=== PATIENT | female | born 1990 | race Caucasian/White ===

== ENCOUNTER → 2020-05-28 | Outpatient (CLI) | payer BC ==
--- NOTE | 2020-05-28 12:56 | Diagnostic Imaging Report ---
PROCEDURE: US OB SINGLE FETUS <14 WKS. TECHNIQUE: Multiple real-time grayscale images were obtained over the gravid uterus in various projections. INDICATION: OB ultrasound for dates. FINDINGS: There is a single live intrauterine fetus. [place]-rump length of 2.8 cm consistent with 9 week 5 day gestation. There is heart rate of 180. Amniotic sac appears normal. There is no subchorionic fluid demonstrated. The maternal adnexa appear normal. IMPRESSION: Single live intrauterine fetus consistent with 9 week 5 day gestation. Sonographic EDC of 12/26/2020 which correlates with LMP. Dictated by: Dictated on workstation # [id number]
== END ==
LOC: RAD 10:00
PROVIDERS: ATTEND Obstetrics & Gynecology
DX: O36.80X0 Pregnancy with inconclusive fetal viability, not applicable or unspecified (principal); Z3A.09 9 weeks gestation of pregnancy
CPT/HCPCS: 76801

== ENCOUNTER → 2020-08-13 | Outpatient (CLI) | payer BC ==
--- NOTE | 2020-08-13 14:31 | Diagnostic Imaging Report ---
INDICATION: Undergoing anatomical assessment during normal . TECHNIQUE: Multiple real-time grayscale images were obtained over the gravid uterus. COMPARISON: 05/28/2020. FINDINGS: A single viable intrauterine is currently in a breech presentation. Normal amount of amniotic fluid with gestational sac configuration unremarkable. Posterior placenta without previa. Cervical length at 4 cm. Visualized anatomical structures including the kidneys, bladder, stomach, intracranial structures, four-chamber heart, three-vessel cord and cord insertion site appearing unremarkable. The particularly lower spine was not able to be visualized and well assessed given the positioning. Biometrical measurements are as follows: Biparietal 4.69 cm, age 20 weeks 2 days. Head circumference 18.4 cm, age 20 weeks 6 days. Abdominal circumference 15.6 cm, age 20 weeks 6 days. Femur length 3.3 cm, age 20 weeks 2 days. Sonographic estimate age: 20 weeks 4 days. Sonographic estimated date of delivery: 12/27/20. Estimated Weight: 358 gm (+/- 52 gm). LMP percentile: 34%. heart rate: 143 beats per minute. number: 1 of 1. IMPRESSION: 1. Single viable intrauterine in a breech presentation. Sonographic estimated age at 20 weeks 4 days for estimated date of delivery of December 27, 2020. This corresponds to previous ultrasound dating. 2. No abnormality is demonstrated at this time. However, particularly the lower spine cannot be well visualized and assessed at this time given positioning. Consideration for short-term follow-up repeat imaging would be recommended for follow-up assessment. Dictated by: Dictated on workstation # [id number]
== END ==
LOC: RAD 09:40
PROVIDERS: ATTEND Obstetrics & Gynecology
DX: Z34.92 Encounter for supervision of normal pregnancy, unspecified, second trimester (principal); Z3A.20 20 weeks gestation of pregnancy
CPT/HCPCS: 76805

== ENCOUNTER → 2020-12-10 | Outpatient (CLI) | payer BC ==
[2020-12-10 16:58] LABS: URINE CREATININE FOR RATIO 28 MG/DL (30-125)
[2020-12-10 16:59] LABS: URINE PROTEIN FOR RATIO ONLY < 6 MG/DL (6-12)
== END ==
LOC: LABNPT 16:35
PROVIDERS: ATTEND Obstetrics & Gynecology
DX: O13.9 Gestational [pregnancy-induced] hypertension without significant proteinuria, unspecified trimester (principal); Z3A.00 Weeks of gestation of pregnancy not specified
CPT/HCPCS: 82570; 84156

== ENCOUNTER 2020-12-19 19:04 | Inpatient (IN) | payer BC ==
[2020-12-19] MEDS ORDERED: D5 LR IV SOLUTION 1,000 ML IV ONE (19:06)
[2020-12-19] MEDS ORDERED: NS IV 500 ML 500 ML ONE (19:06)
[2020-12-19 20:00] VITALS: BP 134/75
[2020-12-19] MEDS ORDERED: MISOPROSTOL 100 MCG (CYTOTEC) TAB ONE (20:01)
[2020-12-19] MEDS: D5 LR IV SOLUTION 1,000 ML IV SCH (20:11)
[2020-12-19 20:12] LABS: BASOPHILS % (AUTO) 0 % (0-10); EOSINOPHILS # (AUTO) 0.1 10^3/uL (0.0-0.3); EOSINOPHILS % (AUTO) 1 % (0-10); HEMATOCRIT 37 % (35-52); HEMOGLOBIN 12.7 g/dL (11.5-16.0); LYMPHOCYTES # (AUTO) 2.1 10^3/uL (1.0-4.0); LYMPHOCYTES % (AUTO) 21 % (12-44); MEAN CORPUSCULAR HEMOGLOBIN 31 pg (25-34); MEAN CORPUSCULAR HGB CONC 34 g/dL (32-36); MEAN CORPUSCULAR VOLUME 90 fL (80-99); MEAN PLATELET VOLUME 10.8 fL (9.0-12.2); MONOCYTES # (AUTO) 0.7 10^3/uL (0.0-1.0); MONOCYTES % (AUTO) 7 % (0-12); NEUTROPHILS # (AUTO) 7.3 10^3/uL (1.8-7.8); NEUTROPHILS % (AUTO) 71 % (42-75); PLATELET COUNT 265 10^3/uL (130-400); WHITE BLOOD COUNT 10.3 10^3/uL (4.3-11.0)
[2020-12-19 20:14] LABS: BILIRUBIN,URINE NEGATIVE (NEGATIVE); CLARITY,URINE CLEAR; COLOR,URINE YELLOW; GLUCOSE, URINE (UA) NEGATIVE (NEGATIVE); KETONES,URINE NEGATIVE (NEGATIVE); LEUKOCYTE ESTERASE ,URINE NEGATIVE (NEGATIVE); NITRITE,URINE NEGATIVE (NEGATIVE); PH,URINE 6.5 (5-9); PROTEIN,URINE NEGATIVE (NEGATIVE)
[2020-12-19] MEDS ORDERED: NS IV 500 ML 500 ML IV ONE (20:15)
[2020-12-19] MEDS ORDERED: MISOPROSTOL 100 MCG (CYTOTEC) TAB PO ONE (20:15)
[2020-12-19 20:21] LABS: BACTERIA,URINE TRACE /HPF; WBC,URINE RARE /HPF
[2020-12-19 22:00] VITALS: BP 132/78
[2020-12-19] MEDS ORDERED: CATHETER FLUSH 10 ML SYR IV SCH (22:00)
[2020-12-19 23:00] VITALS: BP 135/73
[2020-12-20] VITALS (80 sets, daily range): BP systolic 111–191; BP diastolic 63–102
[2020-12-20] MEDS: MISOPROSTOL 100 MCG (CYTOTEC) TAB PO SCH ×2 (00:10→04:16)
[2020-12-20] MEDS ORDERED: fentaNYL 2 mcg/ml BUPIVA 0.125 100 ML ONE (01:26)
[2020-12-20] MEDS: D5 LR IV SOLUTION 1,000 ML IV SCH ×3 (03:31→19:23)
[2020-12-20] MEDS ORDERED: OXYTOCIN PRE-MIX DRIP 500 ML IV ONE ×2 (06:02→21:59)
[2020-12-20] MEDS ORDERED: OXYTOCIN PRE-MIX DRIP 500 ML IV SCH (06:15)
[2020-12-20] MEDS ORDERED: BUPIVACAINE 0.25% 30 ML (SENSORCAINE) VIAL ONE (10:07)
[2020-12-20] MEDS ORDERED: fentaNYL INJECTION 100 MCG/2 ML AMP ONE ×2 (10:07→20:39)
[2020-12-20] MEDS ORDERED: diphenhydrAMINE 50 MG/ML INJ (BENADRYL) IV PRN ×2 (10:15→22:30)
[2020-12-20] MEDS ORDERED: NALOXONE 0.4 MG/ML 1 ML (NARCAN) VIAL IV PRN ×3 (10:15→22:30)
[2020-12-20] MEDS ORDERED: ONDANSETRON 4 MG/2 ML (SDV) Z0FRAN IV PRN ×2 (10:15→22:30)
[2020-12-20] MEDS ORDERED: METOCLOPRAMIDE INJ 10 MG/2 ML (REGLAN) IV PRN (10:15)
[2020-12-20] MEDS: EPIDURAL (fentaNYL 2 MCG/ML BUPIVA 0.125%)100 ML BAG EPI PRN ×2 (10:38→18:35)
[2020-12-20] MEDS: LACTATED RINGERS 1,000 ML IV SCH ×2 (10:38→20:39)
[2020-12-20] MEDS ORDERED: CITRIC ACID/SOB CIT (BICITRA) 30 ML UDC ONE (20:28)
[2020-12-20] MEDS ORDERED: ceFAZolin 2 GM IV Premixed 50 ML ONE (20:28)
[2020-12-20] MEDS ORDERED: FAMOTIDINE 20MG/2ML IV (PEPCID) ONE (20:29)
[2020-12-20] MEDS ORDERED: BUPIVACAINE 0.5% 30 ML (SENSORCAINE) VIAL ONE ×2 (20:39→22:22)
[2020-12-20] MEDS ORDERED: LIDOCAINE PF 2% 5 ML (XYLOCAINE) VIAL ONE (20:39)
--- NOTE | 2020-12-20 20:40 | History & Physical-OB ---
OB - Chief Complaint & HPI Date/Time Date of Admission: Date of Admission: Dec 19, 2020 at 19:04 Date seen by a Provider: Dec 20, 2020 Time Seen by a Provider: 07:45 Chief Complaint/History OB-Reason for Admission/Chief: Induction of Labor Hx : 1 Hx Para: 0 Expected Date of Delivery: Dec 26, 2020 Gestational Age in Weeks: 39 Gestational Age in Days: 1 Indication for induction: maternal discomfort Admission Nurse Assessment Rev: Yes Allergies and Home Medications Allergies Coded Allergies: No Known Allergies (Verified Allergy, Unknown, 12/19/20) Patient Home Medication List Home Medication List Reviewed: Yes OB - History Hx of Present Care: Yes Ultrasounds: Normal mid trimester US Obstetrical Complications: None Medical Complications: None Patient Past Medical History n/a Immunizations Hepatitis A: Yes Hepatitis B: Yes Date of Influenza Vaccine: Aug 19, 2020 OB - Admission Exam Physical Exam Vitals: Vital Signs 12/20/20 12/20/20 18:35 19:08 Temp 37.1 Pulse 95 Resp 18 B/P (MAP) 148/89 (108) Pulse Ox 99 O2 Delivery Room Air HEENT: NCAT Heart: Rhythm Normal Lungs: Clear Abdomen: Gravid Extremities: Normal Reflexes: Normal Cervical Dilatation: 2cm Effacement: 75% Station: -1 Membranes: Intact Heart Rate: 130's Accelerations: Accelerations Present Decelerations: No Decelerations Short Term Variability: Present Fdc Variability: Average (6-25) Contractions on Admission: >10 Minutes Apart Intensity: Mild Powers Scoring Tool (Modified) Dilation (cm): 1-2cm (1) Descent/Station: -1,0 (2) Cervix Consistency: Soft (2) Cervix Position: Anterior (2) Subtract 1 point for: Nulliparity (-1) Powers Score: 8 Labs Laboratory Tests Test 12/19/20 21:50 Range/Units Coronavirus (COVID-19)(PCR) Negative Negative OB - Assessment/Plan/Diagnosis Assessment Assessment: induction of labor Admission Dx 30 yo @ 39 weeks Elective induction of labor GBS neg Admission Status: Inpatient Order (span 2 midnights) Reason for Inpatient Admission: Induction of labor at term Plan Plan: Induction Induction Method: per Misoprostol Protocol Other Plan Misoprostol overnight, AROM and Pitocin in AM. SWAPNA ZUNIGA DO Dec 20, 2020 20:40
--- NOTE | 2020-12-20 20:43 | Progress Note ---
Standard Progress Note Progress Notes/Assess & Plan Date Seen by a Provider: Dec 20, 2020 Time Seen by a Provider: 20:30 Progress/Assessment & Plan Patient admitted last night for IOL at 39 weeks, cytotec given overnight, followed by AROM and Pitocin augmentation this AM. She received an epidural for pain control and progressed to complete and 0 station at which point she was given time to labor down over one hour. There was no change in station, and encouraged to push with no descent. There was a large caput developing, suspecting CPD. Discussed with patient proceeding with PLTCS due to suspected CPD and failure to descend. All questions were answered and she was agree able, consent to be obtained, and OR crew notified. SWAPNA ZUNIGA DO Dec 20, 2020 20:43
[2020-12-20] MEDS ORDERED: MEASLES,MUMPS,RUBELLA 1 EA INJ SC SCH (20:45)
[2020-12-20] MEDS ORDERED: TETANUS,DIPTH,PERTUSS P/F (BOOSTRIX) 0.5 ML VIAL IM SCH (20:45)
[2020-12-20] MEDS ORDERED: ONDANSETRON 4 MG/2 ML (SDV) Z0FRAN IVP PRN ×2 (20:45→22:30)
--- NOTE | 2020-12-20 20:48 | Discharge Inst-Women's Service ---
Discharge Inst-Women's Serv Depart Medication/Instructions New, Converted or Re-Newed RX: RX on Chart Final Diagnosis POD 2 PLTCS Problems Reviewed?: Yes Consults/Follow Up Additional Follow Up: Yes Orders/Referrals Dr. March in 7-10 days and in 6 weeks Activity Activity: Activity as Tolerated Driving Instructions: No Driving for 1 Week NO SMOKING: NO SMOKING Nothing Inside Vagina: No Douching, No [place], No Tampons Diet Discharge Diet: No Restrictions Symptoms to Report to : Bleeding Excessive, Pain Increased, Fever Over 101 Degrees F, Vaginal Bleeding Increase, Questions/Concerns For Any Problems or Questions: Contact Your Physician Skin/Wound Care Infection Signs and Symptoms: Increased Redness, Foul Odor of Wound, Increased Drainage, Skin Itchy or Has a Rash, Increased Swelling, Temperature Above 101 F Operative Area Clean and Dry: Keep Incision Clean/Dry Stitches/[place]/Dermabond: Dermabond, Care of Stitches Bathing Instructions: SWAPNA Stephens DO Dec 20, 2020 20:48
[2020-12-20] MEDS ORDERED: DCS100C PO (20:49)
[2020-12-20] MEDS ORDERED: ACHD5005 PO (20:49)
[2020-12-20] MEDS ORDERED: IBUP-844 PO (20:49)
[2020-12-20] MEDS: DOCUSATE SODIUM 100 MG (COLACE) CAP PO SCH (21:00)
[2020-12-20] MEDS ORDERED: KETOROLAC 30 MG/ML VIAL ONE (21:25)
[2020-12-20] MEDS ORDERED: MEPERIDINE (DEMEROL) INJ 50 MG/ML ONE (21:26)
[2020-12-20] MEDS ORDERED: ONDANSETRON 4 MG/2 ML (SDV) Z0FRAN ONE (21:59)
[2020-12-20] MEDS ORDERED: CATHETER FLUSH 10 ML SYR IV SCH (22:00)
[2020-12-20] MEDS ORDERED: LACTATED RINGERS 1,000 ML IV SCH (22:30)
[2020-12-20] MEDS ORDERED: fentaNYL INJECTION 100 MCG/2 ML AMP IVP ONE (22:30)
[2020-12-20] MEDS ORDERED: MEPERIDINE (DEMEROL) INJ 50 MG/ML IVP ONE (22:30)
[2020-12-20] MEDS: OXYTOCIN PRE-MIX DRIP 500 ML IV SCH (22:30)
[2020-12-20] MEDS ORDERED: morphine INJ 10 MG/ML 1ML (SYR OR VIAL) IVP ONE (22:30)
[2020-12-20] MEDS: KETOROLAC 30 MG/ML VIAL IV SCH (22:31)
--- NOTE | 2020-12-21 00:27 | OPERATIVE REPORT ---
DATE OF SERVICE: PREOPERATIVE DIAGNOSES: 1. A 30-year-old G1, P0, 39 weeks and 1 day gestation. 2. Cephalopelvic disproportion. 3. Failure to descend. POSTOPERATIVE DIAGNOSES: 1. A 30-year-old G1, P0, 39 weeks and 1 day gestation. 2. Cephalopelvic disproportion. 3. Failure to descend. PROCEDURE: Primary low transverse section. SURGEON: Hugo Zuniga DO ANESTHESIA: Epidural, which was bolused. ESTIMATED BLOOD LOSS: 700 mL. URINE OUTPUT: 60 mL clear at the end of the procedure. FLUIDS: 1000 mL lactated Ringer's solution. FINDINGS: A live male weighing 8 pounds even Apgars of 8 and 9. Grossly normal appearing uterus, bilateral fallopian tubes and ovaries. SPECIMEN SENT: None. INDICATIONS FOR PROCEDURE: This 30-year-old female that the patient has sent from my office yesterday for induction of labor due to labile blood pressures, also she was 39 weeks, we discussed the induction method including cervical ripening overnight. She received misoprostol overnight. Artificial rupture of membranes was performed this morning and Pitocin augmentation was used due to dysfunctional uterine contraction pattern after that. She did receive an epidural for analgesia and was well controlled with analgesia and progressed to complete and 0 station; however, after allowing the labor down and pushing for well over an hour, there was no progress in the presenting part past 0 station. Due to the suspicion for cephalopelvic disproportion, there was blood in the urine as well as swelling caput. I discussed with the patient proceeding with primary . Risks of the procedure were discussed with the patient, after all of her questions were answered, consent was obtained, the patient was taken to the operating room. OPERATIVE REPORT IN DETAIL: Once in the operating room, epidural analgesia was bolused and found to be adequate, placed in supine position with leftward tilt, prepped and draped in normal sterile fashion. A timeout was performed, and anesthesia was tested. I then make a Pfannenstiel skin incision with a knife and carried down to the underlying fascia using Bovie cautery. The fascial incision extended laterally using Bovie cautery. Superior aspect of fascial incision was then grasped with Kennedy clamps, tented up and dissected off the underlying rectus muscles. The inferior aspect of the fascial incision was then grasped with Kennedy clamps, tented up and dissected off the underlying rectus muscles. Rectus muscle was then dissected down the midline using Shelton scissors, which exposed the peritoneum, which I entered bluntly and extended using blunt traction. Anatoliy ring retractor was placed in the peritoneal incision, which offers excellent lateral sidewall retraction. I then identified the lower uterine segment, which was found to be thinned out and make a low transverse incision to the vesicouterine peritoneum and bluntly dissected this off the lower uterine segment, creating a bladder flap. I then proceeded with myotomy until membranes were visualized, at which point I extended the uterine incision laterally and superiorly using bandage scissors. The infant was found in vertex presentation, occiput posterior. With gentle fundal pressure, the infant's head was elevated up, the incision were delivered through the incision. The nares and oropharynx were bulb suctioned. Anterior and posterior shoulders were delivered. was then brought out to the operative field where the cord doubly clamped and cut and was handed off to waiting nurses in attendance. Cord blood was collected, 3-vessel cord with intact placenta was delivered spontaneously thereafter. IV Pitocin was initiated to facilitate uterine contraction. Uterine fundus confirmed by manual massage. The uterus was then exteriorized and cleared of all endometrial clots and debris. I then proceeded with closing the uterine incision using 0 Vicryl suture in a running locked fashion. Second layer of imbricating 0 Monocryl was placed. Excellent hemostasis was noted after doing this. I then placed the uterus back in the pelvis and copiously irrigated the pelvis using normal saline. Once again, there was no active bleeding noted from any of my dissection planes. I placed Interceed antiadhesive over my low transverse incision, I removed the Anatoliy ring retractor and then proceeded with closing the peritoneum using 3-0 Vicryl suture in running fashion. The rectus muscle reapproximated using 3-0 Vicryl suture in interrupted fashion. The fascia was reapproximated using 0 Vicryl suture in running fashion. Subcutaneous tissue was reapproximated using 3-0 plain interrupted subcutaneous stitch and skin reapproximated using 4-0 Monocryl in a running subcuticular. Dermabond was applied to incision and sterile dressing with adhesive white tape. The patient tolerated the procedure well and was taken to recovery area in stable condition. Lap and sponge counts were correct at the end of the procedure. Instrument counts were correct as well. Two grams of Ancef were given preoperatively for infection prophylaxis. Job ID: [id number] DocumentID: [id number] Dictated Date: 12/20/2020 22:17:08 Gyn Date: 12/21/2020 00:26:25 Dictated By: HUGO ZUNIGA DO
[2020-12-21 00:35] VITALS: BP 133/61
[2020-12-21] MEDS: KETOROLAC 30 MG/ML VIAL IV SCH ×2 (04:06→11:01)
[2020-12-21 04:10] VITALS: BP 120/60
[2020-12-21] MEDS: D5 LR IV SOLUTION 1,000 ML IV SCH (04:52)
[2020-12-21] MEDS: OXYTOCIN PRE-MIX DRIP 500 ML IV SCH (04:52)
[2020-12-21 06:29] LABS: BASOPHILS # (AUTO) 0.1 10^3/uL (0.0-0.1); BASOPHILS % (AUTO) 0 % (0-10); EOSINOPHILS % (AUTO) 0 % (0-10); HEMATOCRIT 29 % (35-52); HEMOGLOBIN 9.7 g/dL (11.5-16.0); LYMPHOCYTES # (AUTO) 1.7 10^3/uL (1.0-4.0); LYMPHOCYTES % (AUTO) 12 % (12-44); MEAN CORPUSCULAR HEMOGLOBIN 31 pg (25-34); MEAN CORPUSCULAR HGB CONC 34 g/dL (32-36); MEAN CORPUSCULAR VOLUME 91 fL (80-99); MEAN PLATELET VOLUME 11.3 fL (9.0-12.2); MONOCYTES # (AUTO) 1.4 10^3/uL (0.0-1.0); MONOCYTES % (AUTO) 9 % (0-12); NEUTROPHILS # (AUTO) 11.6 10^3/uL (1.8-7.8); NEUTROPHILS % (AUTO) 78 % (42-75); PLATELET COUNT 183 10^3/uL (130-400); WHITE BLOOD COUNT 14.8 10^3/uL (4.3-11.0)
[2020-12-21] MEDS: HYDROcodone/APAP 5 MG/325 MG (LORTAB) TAB PO PRN ×2 (07:35→22:22)
[2020-12-21 08:20] VITALS: BP 125/61
[2020-12-21] MEDS: DOCUSATE SODIUM 100 MG (COLACE) CAP PO SCH ×2 (08:55→22:22)
--- NOTE | 2020-12-21 08:57 | Postpartum Progress Note ---
LILIYA KOCH MED STUDENT 12/21/20 0857: Note Note Day # 1 Subjective: Patient is without complaints. Ambulating, voiding. Tolerating a regular diet without nausea or vomiting. Normal lochia. Pain is well controlled with oral pain medications. Objective: Physical Exam: General - Alert and oriented, no apparent distress Abdomen - Soft, appropriately tender to palpation, non-distended, fundus firm at umbilicus. Incision site clean, dry, and intact Extremities - no edema, negative Kaia's bilaterally Assessment: post- day # 1, status post delivery. Recovering well, mildly anemic but hemodynamically stable Plan: Routine care. Encourage breast feeding. Encourage ambulation. Ferrous sulfate supplementation. Plan for discharge Vitals - Labs Vital Signs - I&O Vital Signs Date Time Temp Pulse Resp B/P (MAP) Pulse Ox O2 Delivery O2 Flow Rate FiO2 12/21/20 08:20 36.6 78 18 125/61 (82) 98 Room Air 12/21/20 04:10 36.9 64 18 120/60 (80) Room Air 12/21/20 01:08 97 Room Air 12/21/20 00:35 37.2 83 18 133/61 (85) 97 Room Air 12/20/20 23:00 36.4 18 128/68 (88) 99 Room Air 12/20/20 23:00 Room Air 12/20/20 22:50 18 122/66 (84) 99 Room Air 12/20/20 22:46 Room Air 12/20/20 22:44 Room Air 12/20/20 22:40 18 111/76 (88) 99 Room Air 12/20/20 22:35 Room Air 12/20/20 22:30 20 135/69 (91) 99 Room Air 12/20/20 22:20 Room Air 12/20/20 22:20 20 143/81 (101) 100 Room Air 12/20/20 22:15 20 143/81 (101) 100 Room Air 12/20/20 22:07 37.0 20 144/80 (101) 100 Room Air 12/20/20 22:07 Room Air 12/20/20 21:00 18 146/83 (104) Room Air 12/20/20 20:55 89 18 140/80 (100) Room Air 12/20/20 20:40 85 18 139/81 (100) Room Air 12/20/20 20:25 126 18 191/92 (125) Room Air 12/20/20 20:10 85 18 178/100 (126) Room Air 12/20/20 19:55 37.2 78 18 175/96 (122) Room Air 12/20/20 19:40 77 18 157/82 (107) Room Air 12/20/20 19:25 37.2 95 18 133/84 (100) 100 Room Air 12/20/20 19:08 95 18 148/89 (108) 99 Room Air 12/20/20 18:53 74 18 143/80 (101) 99 Room Air 12/20/20 18:38 85 18 142/74 (96) 100 Room Air 12/20/20 18:35 37.1 12/20/20 18:23 75 18 139/76 (97) 99 Room Air 12/20/20 17:53 78 18 151/87 (108) 100 Room Air 12/20/20 17:39 76 18 145/82 (103) 100 Room Air 12/20/20 17:24 71 18 141/77 (98) 100 Room Air 12/20/20 17:09 83 18 160/95 (116) 100 Room Air 12/20/20 16:53 75 18 144/95 (111) 100 Room Air 12/20/20 16:40 69 18 155/91 (112) 100 Room Air 12/20/20 16:25 67 18 158/94 (115) 100 Room Air 12/20/20 16:10 67 18 142/91 (108) 100 Room Air 12/20/20 15:54 63 18 137/83 (101) 100 Room Air 12/20/20 15:40 60 18 156/86 (109) 100 Room Air 12/20/20 15:25 36.3 67 18 170/91 (117) 100 Room Air 12/20/20 15:09 60 18 134/76 (95) 100 Room Air 12/20/20 14:52 68 18 135/82 (99) 99 Room Air 12/20/20 14:39 64 18 136/77 (96) 100 Room Air 12/20/20 14:24 61 18 131/76 (94) 100 Room Air 12/20/20 14:09 63 18 129/77 (94) 100 Room Air 12/20/20 13:53 62 18 129/74 (92) 100 Room Air 12/20/20 13:40 63 18 128/69 (88) 100 Room Air 12/20/20 13:24 63 18 123/69 (87) 100 Room Air 12/20/20 13:08 65 18 126/76 (93) 100 Room Air 12/20/20 12:57 36.1 60 18 124/75 (91) 100 Room Air 12/20/20 12:38 74 18 131/83 (99) 100 Room Air 12/20/20 12:26 74 18 134/81 (98) 100 Room Air 12/20/20 12:08 78 18 126/66 (86) 99 Room Air 12/20/20 11:53 75 18 128/68 (88) 100 Room Air 12/20/20 11:38 77 18 127/63 (84) 100 Room Air 12/20/20 11:25 35.6 76 18 127/70 (89) 100 Room Air 12/20/20 11:05 72 18 129/68 (88) 100 Room Air 12/20/20 11:00 73 18 130/66 (87) 99 Room Air 12/20/20 10:56 86 18 128/66 (86) 99 Room Air 12/20/20 10:52 78 18 138/78 (98) 99 Room Air 12/20/20 10:46 91 18 140/75 (96) 97 Room Air 12/20/20 10:35 80 18 138/81 (100) 98 Room Air 12/20/20 10:32 77 18 139/79 (99) 99 Room Air 12/20/20 10:30 66 18 156/85 (108) 99 Room Air 12/20/20 10:27 71 18 160/80 (106) 100 Room Air 12/20/20 10:24 68 18 167/75 (105) 100 Room Air 12/20/20 10:21 71 18 169/87 (114) 99 Room Air 12/20/20 10:15 69 18 173/98 (123) Room Air 12/20/20 10:00 36.8 62 18 169/91 (117) Room Air 12/20/20 09:45 68 18 176/102 (126) Room Air 12/20/20 09:30 74 18 124/75 (91) Room Air 12/20/20 09:15 70 18 143/90 (107) Room Air 12/20/20 09:00 62 18 161/87 (111) Room Air I & O 12/21/20 07:00 Intake Total 5600 ml Output Total 2060 ml Balance 3540 ml Labs Laboratory Tests 12/21/20 05:13: White Blood Count 14.8H, Red Blood Count 3.13L, Hemoglobin 9.7#L, Hematocrit 29L , Mean Corpuscular Volume 91, Mean Corpuscular Hemoglobin 31, Mean Corpuscular Hemoglobin Concent 34, Red Cell Distribution Width 12.3, Platelet Count 183, Mean Platelet Volume 11.3, Immature Granulocyte % (Auto) 1, Neutrophils (%) (Auto) 78H, Lymphocytes (%) (Auto) 12, Monocytes (%) (Auto) 9, Eosinophils (%) (Auto) 0, Basophils (%) (Auto) 0, Neutrophils # (Auto) 11.6H, Lymphocytes # (Auto) 1.7, Monocytes # (Auto) 1.4H, Eosinophils # (Auto) 0.0, Basophils # (Auto) 0.1, Immature Granulocyte # (Auto) 0.1 SWAPNA ZUNIGA DO 12/21/20 1336: Note Note Verification and Attestation of Medical Student E/M Service Diagnosis: POD 1 PLTCS Acute blood loss anemia agree with plan as detailed A medical student performed and documented this service in my presence. I reviewed and verified all information documented by the medical student and made modifications to such information, when appropriate. I personally performed the physical exam and medical decision making. Swapna Zuniga, Dec 21, 2020,13:35 LILIYA KOCH MED STUDENT Dec 21, 2020 08:57 SWAPNA ZUNIGA DO Dec 21, 2020 13:36
[2020-12-21 12:14] VITALS: BP 117/57
[2020-12-21] MEDS ORDERED: IBUPROFEN 600 MG (MOTRIN) TAB PO ONE (16:13)
[2020-12-21] MEDS: IBUPROFEN 600 MG (MOTRIN) TAB PO SCH ×2 (16:20→22:22)
[2020-12-21 16:22] VITALS: BP 146/78
--- NOTE | 2020-12-21 17:17 | Anesthesia-Regional Post-Op ---
Regional Patient Condition Mental Status: Alert, Oriented x3 Circulation: Same as Pre-Op Headache: Absent Sensation: Full Recovery Motor Block: Absent Post Op Complications Complications None Follow Up Care/Instructions Patient Instructions None needed. Anesthesia/Patient Condition Patient is doing well, no complaints, stable vital signs, no apparent adverse anesthesia problems. No complications reported per nursing. ELLY VILLALOBOS CRNA Dec 21, 2020 17:17
[2020-12-21 22:25] VITALS: BP 117/56
[2020-12-22] MEDS: IBUPROFEN 600 MG (MOTRIN) TAB PO SCH ×2 (04:20→11:45)
[2020-12-22 04:22] VITALS: BP 127/60
--- NOTE | 2020-12-22 07:02 | Postpartum Progress Note ---
Note Note Day # 2 Subjective: Patient is without complaints. Ambulating, voiding. Tolerating a regular diet without nausea or vomiting. Normal lochia. Pain is well controlled with oral pain medications. Objective: Physical Exam: General - Alert and oriented, no apparent distress Abdomen - Soft, appropriately tender to palpation, non-distended, fundus firm at umbilicus Extremities - no edema, negative Kaia's bilaterally Incision- c/d/i Assessment: POD 2 PLTCS Acute blood loss anemia Plan: Routine care. Encourage breast feeding. Encourage ambulation. Ferrous sulfate supplementation. Plan for discharge today Vitals - Labs Vital Signs - I&O Vital Signs Date Time Temp Pulse Resp B/P (MAP) Pulse Ox O2 Delivery O2 Flow Rate FiO2 12/22/20 04:22 36.0 76 18 127/60 (82) 97 Room Air 12/21/20 22:25 36.6 72 18 117/56 (76) 97 Room Air 12/21/20 16:22 36.7 90 18 146/78 (100) 100 Room Air 12/21/20 12:14 36.5 73 18 117/57 (77) 97 Room Air 12/21/20 08:20 36.6 78 18 125/61 (82) 98 Room Air l I & O 12/22/20 06:59 Intake Total 1200 ml Output Total 1100 ml Balance 100 ml SWAPNA ZUNIGA DO Dec 22, 2020 07:02
[2020-12-22 07:30] VITALS: BP 134/62
[2020-12-22] MEDS: DOCUSATE SODIUM 100 MG (COLACE) CAP PO SCH (07:46)
[2020-12-22] MEDS: HYDROcodone/APAP 5 MG/325 MG (LORTAB) TAB PO PRN (07:46)
[2020-12-22] MEDS: KETOROLAC 30 MG/ML VIAL IV SCH (09:07)
== END 2020-12-22 12:45 | disposition home or self-care (01) | DRG 787 ==
LOC: LDRP 19:04
PROVIDERS: ADMIT Obstetrics & Gynecology; ATTEND Obstetrics & Gynecology
PROC: 10D00Z1 Extraction of Products of Conception, Low, Open Approach (ICD-10-PCS; principal; 2020-12-19)
DX: O62.0 Primary inadequate contractions (principal); D62 Acute posthemorrhagic anemia; Z37.0 Single live birth; Z3A.39 39 weeks gestation of pregnancy; O90.81 Anemia of the puerperium; O33.9 Maternal care for disproportion, unspecified; Z20.822 Contact with and (suspected) exposure to COVID-19
CPT/HCPCS: 36415; 81000; 85025; 86850; 86900; 86901; 87081; 87635; 94664

== ENCOUNTER 2023-02-10 16:00 | Emergency (ER) | payer BC ==
[~2023-02-10] VITALS: Ht 165 cm; Wt 104.0 kg
[~2023-02-10 16:00] MED LIST: ACHD5005 PO; DOCU-239 PO; IBUP-844 PO
[2023-02-10 16:43] LABS: BASOPHILS # (AUTO) 0.1 10^3/uL (0.0-0.1); BASOPHILS % (AUTO) 1 % (0-10); EOSINOPHILS # (AUTO) 0.2 10^3/uL (0.0-0.3); EOSINOPHILS % (AUTO) 3 % (0-10); HEMATOCRIT 45 % (35-52); HEMOGLOBIN 15.5 g/dL (11.5-16.0); LYMPHOCYTES # (AUTO) 2.6 10^3/uL (1.0-4.0); LYMPHOCYTES % (AUTO) 40 % (12-44); MEAN CORPUSCULAR HEMOGLOBIN 31 pg (25-34); MEAN CORPUSCULAR HGB CONC 34 g/dL (32-36); MEAN CORPUSCULAR VOLUME 90 fL (80-99); MEAN PLATELET VOLUME 9.8 fL (9.0-12.2); MONOCYTES # (AUTO) 0.6 10^3/uL (0.0-1.0); MONOCYTES % (AUTO) 9 % (0-12); NEUTROPHILS % (AUTO) 47 % (42-75); PLATELET COUNT 286 10^3/uL (130-400); WHITE BLOOD COUNT 6.4 10^3/uL (4.3-11.0)
--- NOTE | 2023-02-10 16:52 | ED General ---
General Chief Complaint: Cardiac/General Problems Stated Complaint: HIGH BLOOD PRESHURE Nursing Triage Note: PT COMPLAINS OF CONTINUED HIGH BP. WAS STARTED ON LISINOPRIL WEDNESDAY. STATES SHE FEELS SOA WITH IT. WAS ALSO STARTED ON AN ANXIETY MED AT THE SAME TIME. Source of Information: Patient Exam Limitations: No Limitations History of Present Illness Date Seen by Provider: Feb 10, 2023 Time Seen by Provider: 16:18 Initial Comments 32-year-old female presents the emergency department today for elevated blood pressures. She was seen on Wednesday at her primary doctor's office started on lisinopril for elevated blood pressures. She was also started on hydroxyzine as needed for anxiety. She states she just "does not feel right." Her blood pressure when she took it earlier was 150/100. States she called her primary doctor's office and was told to come to the emergency department. She denies any chest pain. She does have shortness of breath with moderate exertion. She states she is also developed a little bit of a stutter and difficulty following a train of thought. She has no focal weakness numbness or tingling no significant increased anxiety lately. She has cut out caffeine. She had her thyroid checked at her primary doctor's office and she does take Synthroid. This was reportedly normal. All other systems reviewed and negative except documented per HPI. Voice recognition software was used to help create this chart Allergies and Home Medications Allergies Coded Allergies: No Known Allergies (Verified Allergy, Unknown, 12/19/20) Patient Home Medication List Home Medication List Reviewed: Yes Discontinued Medications Docusate Sodium (Dok) 100 Mg Capsule, 100 MG PO BID PRN for CONSTIPATION-1ST LINE Discontinued Reason: No Longer Taking Prescribed by: SWAPNA ZUNIGA on 12/20/202048 Last Action: Discontinued Hydrocodone Bit/Acetaminophen (HYDROcodone/APAP 5 MG/325 MG TAB) 1 Tab Tab, 1-2 EA PO Q6HR PRN for PAIN-MODERATE (5-7) Discontinued Reason: No Longer Taking Prescribed by: SWAPNA ZUNIGA on 12/20/202048 Last Action: Discontinued Ibuprofen (Ibu) 600 Mg Tablet, 600 MG PO Q6HR Discontinued Reason: No Longer Taking Prescribed by: SWAPNA ZUNIGA on 12/20/202048 Last Action: Discontinued Review of Systems Review of Systems Constitutional: see HPI Past Gtesraj-[id number]-Togrzp Hx Patient Social History Tobacco Use?: No Substance use?: No Alcohol Use?: Yes Alcohol Frequency: Rarely Immunizations Up To Date First/Initial COVID19 Vaccinat: UNKNOWN 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 oz. kg; 38.00 BMI Method: General Appearance: No Apparent Distress, WD/WN Eyes: Bilateral Eye Normal Inspection, Bilateral Eye PERRL, Bilateral Eye EOMI HEENT: PERRL/EOMI, Normal ENT Inspection, Pharynx Normal Neck: Normal Inspection, Non Tender, Supple Respiratory: Chest Non Tender, Lungs Clear, Normal Breath Sounds, No Accessory Muscle Use Cardiovascular: Regular Rate, Rhythm, No Murmur, Normal Peripheral Pulses Gastrointestinal: Normal Bowel Sounds, Non Tender, Soft Extremity: Normal Capillary Refill, Normal Inspection, Normal Range of Motion, Non Tender, No Calf Tenderness Neurologic/Psychiatric: Alert, Oriented x3, No Motor/Sensory Deficits, Normal Mood/Affect, kitchen hand II-XII Norm as Tested Skin: Normal Color, Warm/Dry Progress/Results/Core Measures Suspected Sepsis SIRS Temperature: Pulse: 81 Respiratory Rate: 16 Laboratory Tests 02/10/23 16:36: White Blood Count 6.4 Blood Pressure 141 /92 Mean: 108 Laboratory Tests 02/10/23 16:36: Platelet Count 286 Results/Orders Lab Results Laboratory Tests Test 02/10/23 16:36 Range/Units White Blood Count 6.4 4.3-11.0 10^3/uL Red Blood Count 5.02 3.80-5.11 10^6/uL Hemoglobin 15.5 11.5-16.0 g/dL Hematocrit 45 35-52 % Mean Corpuscular Volume 90 80-99 fL Mean Corpuscular Hemoglobin 31 25-34 pg Mean Corpuscular Hemoglobin Concent 34 32-36 g/dL Red Cell Distribution Width 12.0 10.0-14.5 % Platelet Count 286 130-400 10^3/uL Mean Platelet Volume 9.8 9.0-12.2 fL Immature Granulocyte % (Auto) 1 % Neutrophils (%) (Auto) 47 42-75 % Lymphocytes (%) (Auto) 40 12-44 % Monocytes (%) (Auto) 9 0-12 % Eosinophils (%) (Auto) 3 0-10 % Basophils (%) (Auto) 1 0-10 % Neutrophils # (Auto) 3.0 1.8-7.8 10^3/uL Lymphocytes # (Auto) 2.6 1.0-4.0 10^3/uL Monocytes # (Auto) 0.6 0.0-1.0 10^3/uL Eosinophils # (Auto) 0.2 0.0-0.3 10^3/uL Basophils # (Auto) 0.1 0.0-0.1 10^3/uL Immature Granulocyte # (Auto) 0.0 0.0-0.1 10^3/uL My Orders Orders - EDNA DE JESUS DO Cbc With Automated Diff (02/10/23 16:33) Basic Metabolic Panel (02/10/23 16:33) Vital Signs/I&O 02/10/23 16:18 Temp 36.3 Pulse 81 Resp 16 B/P (MAP) 141/92 (108) Pulse Ox 97 O2 Delivery Room Air Capillary Refill : Less Than 3 Seconds Blood Pressure Mean: 108 Departure Impression Primary Impression: Hypertension Qualified Codes: I10 - Essential (primary) hypertension Disposition: 01 HOME, SELF-CARE Condition: Stable Departure-Patient Inst. Referrals: NO,LOCAL PHYSICIAN (PCP/Family) Primary Care Physician EDNA DE JESUS DO Feb 10, 2023 16:52
[2023-02-10 16:55] LABS: POTASSIUM 3.8 MMOL/L (3.6-5.0)
[2023-02-10 16:56] LABS: CALCIUM 8.9 MG/DL (8.5-10.1)
[2023-02-10 17:00] LABS: CREATININE SERUM 0.78 MG/DL (0.60-1.30)
[2023-02-10 17:25] VITALS: BP 118/75
== END 2023-02-10 17:28 | disposition home or self-care (01) ==
LOC: EDUNIT# 16:00 → ER 16:04
DX: I10 Essential (primary) hypertension (principal); F41.9 Anxiety disorder, unspecified; Z79.899 Other long term (current) drug therapy; Z28.310 Unvaccinated for COVID-19
CPT/HCPCS: 36415; 80048; 85025

== ENCOUNTER → 2023-04-05 | Outpatient (CLI) | payer BC | LOC: CARD 12:30 | PROVIDERS: ATTEND Nurse Practitioner Family | DX: R00.2 Palpitations (principal) | CPT/HCPCS: 93225; 93226 ==

== ENCOUNTER → 2023-07-13 | Outpatient (CLI) | payer BC | LOC: CARD 14:07 | PROVIDERS: ATTEND Internal Medicine Cardiovascular Disease | DX: I35.1 Nonrheumatic aortic (valve) insufficiency (principal) | CPT/HCPCS: 93306 ==

== ENCOUNTER → 2023-07-14 | Outpatient (CLI) | payer BC ==
[2023-07-14 13:38] VITALS: BP 111/66
--- NOTE | 2023-07-14 13:38 | Cardiology Stress Test Report ---
Stress Test Report Date of Procedure/Referring: Date of Procedure: Jul 14, 2023 [facility] Admitting Physician Admitting Physician: Attending Physician: Sunny Baldwin MD Baseline Heart Rate: 63 Baseline Blood Pressure: Blood Pressure Systolic: 111 Blood Pressure Diastolic: 66 Baseline EKG: Baseline EKG: NSR Summary/Conclusion: Summary: In summary, the patient started exercising with a baseline heart rate, blood pressure and EKG mentioned above Patient was able to exercise for a total of 7.30 minutes on Gerry protocol, METs 9.1 Maximum heart rate 163 Maximum blood pressure 168/63 Stress EKG, Minimal nondiagnostic changes Recovery EKG , Return to baseline Conclusion: 1. Good exercise tolerance for a total of 7.30 minutes on Gerry protocol, 9.1 METs, achieving 86 percent of maximum expected heart rate 2. Minimal nondiagnostic EKG changes with exercise returned to baseline during recovery 3. No arrhythmia was noted Copy Copies To 1: [facility] SUNNY BALDWIN MD Jul 14, 2023 13:38
== END ==
LOC: CARD 10:00
PROVIDERS: ATTEND Internal Medicine Cardiovascular Disease
DX: R00.2 Palpitations (principal)
CPT/HCPCS: 93017